=== PATIENT | female | born 1990 | race American Indian/Alaskan Native ===

== ENCOUNTER 2021-12-22 22:23 | Emergency (ER) | payer MEDICAID ==
[2021-12-22] MEDS ORDERED: SODIUM CHLORIDE 0.9% 1000 ML 1,000 ML IV ONE (22:31)
--- NOTE | 2021-12-22 22:35 | Emergency Department Report ---
ED General Adult HPI - General Stated complaint: VAG BLEED Time Seen by Provider: 12/22/21 22:28 - History of Present Illness Initial comments: patient presents with complaints of heavy vaginal bleeding x 30 minutes. Denies CP, SOB, dizziness. Endorses suprapubic abdominal cramping. LMP prior to this was 11/27/2021. Has regular periods. - Related Data Allergies Allergy/AdvReac Type Severity Reaction Status Date / Time No Known Allergies Allergy Unverified 12/22/21 22:33 ED Review of Systems ROS: Stated complaint: VAG BLEED Other details as noted in HPI Comment: All other systems reviewed and negative Constitutional: denies: chills, fever ED Past Medical Hx - Past Medical History Previous Medical History?: No ED Physical Exam - General Limitations: No Limitations General appearance: alert, in no apparent distress - Head Head exam: Present: atraumatic, normocephalic - Eye Eye exam: Present: PERRL, EOMI - ENT ENT exam: Present: mucous membranes moist, other (airway patent) - Neck Neck exam: Present: other (supple; no JVD) - Respiratory Respiratory exam: Present: other (good air entry, nml I:E, CTAB, no use of MELANIA) - Cardiovascular Cardiovascular Exam: Present: regular rate. Absent: rubs, gallop - GI/Abdominal GI/Abdominal exam: Present: soft, other (tender to palpation in suprapubic region; no rebound tenderness or involuntary guarding) - Extremities Exam Extremities exam: Present: full ROM. Absent: tenderness - Back Exam Back exam: Present: full ROM. Absent: tenderness - Neurological Exam Neurological exam: Present: alert, oriented X3, CN II-XII intact. Absent: motor sensory deficit - Skin Skin exam: Present: warm, normal color ED Course Vital Signs 12/22/21 12/22/21 12/22/21 22:33 23:22 23:31 Temperature 97.8 F Pulse Rate 68 Respiratory 24 Rate Blood Pressure 103/63 Blood Pressure 93/63 [Left] O2 Sat by Pulse 96 93 99 Oximetry 12/22/21 12/22/21 12/23/21 23:45 23:49 00:01 Temperature Pulse Rate Respiratory Rate Blood Pressure 103/63 103/63 103/66 Blood Pressure [Left] O2 Sat by Pulse 100 100 100 Oximetry 04/12/23/21 12/23/21 00:07 00:15 00:31 Temperature Pulse Rate Respiratory Rate Blood Pressure 103/66 105/63 Blood Pressure [Left] O2 Sat by Pulse 100 100 100 Oximetry 12/23/21 12/23/21 12/23/21 00:45 01:01 01:15 Temperature Pulse Rate Respiratory Rate Blood Pressure 105/63 114/82 114/82 Blood Pressure [Left] O2 Sat by Pulse 100 98 100 Oximetry 12/23/21 12/23/21 12/23/21 01:31 01:45 02:01 Temperature Pulse Rate Respiratory Rate Blood Pressure 109/71 109/71 109/82 Blood Pressure [Left] O2 Sat by Pulse 98 98 98 Oximetry 12/23/21 12/23/21 12/23/21 02:15 02:31 03:40 Temperature Pulse Rate 88 Respiratory 18 Rate Blood Pressure 109/82 118/54 Blood Pressure 116/77 [Left] O2 Sat by Pulse 98 98 98 Oximetry ED Medical Decision Making - Lab Data Result diagrams: 12/22/21 22:49 12/22/21 22:49 Laboratory Tests 12/22/21 12/22/21 12/22/21 22:49 22:49 22:49 WBC 6.7 RBC 4.38 Hgb 13.1 Hct 39.3 MCV 90 MCH 30 MCHC 33 RDW 12.0 L Plt Count 226 Lymph % (Auto) 53.7 H Mclennan % (Auto) 7.0 Eos % (Auto) 1.7 Baso % (Auto) 0.2 Lymph # (Auto) 3.6 Mclennan # (Auto) 0.5 Eos # (Auto) 0.1 Baso # (Auto) 0.0 Seg Neutrophils % 37.4 L Seg Neutrophils # 2.5 PT 14.0 INR 0.97 APTT 32.6 Sodium 138 Potassium 3.6 Chloride 102.5 Carbon Dioxide 23 Anion Gap 16 BUN 7 Creatinine 0.6 Estimated GFR > 60 BUN/Creatinine Ratio 12 Glucose 116 H Calcium 8.8 Total Bilirubin 0.30 AST 13 ALT 10 Alkaline Phosphatase 77 Total Protein 7.1 Albumin 4.5 Albumin/Globulin Ratio 1.7 HCG, Qual Blood Type Antibody Screen 12/22/21 12/22/21 22:49 22:49 WBC RBC Hgb Hct MCV MCH MCHC RDW Plt Count Lymph % (Auto) Mclennan % (Auto) Eos % (Auto) Baso % (Auto) Lymph # (Auto) Mclennan # (Auto) Eos # (Auto) Baso # (Auto) Seg Neutrophils % Seg Neutrophils # PT INR APTT Sodium Potassium Chloride Carbon Dioxide Anion Gap BUN Creatinine Estimated GFR BUN/Creatinine Ratio Glucose Calcium Total Bilirubin AST ALT Alkaline Phosphatase Total Protein Albumin Albumin/Globulin Ratio HCG, Qual Negative Blood Type O POSITIVE Antibody Screen Negative Pelvic US: wnl - Medical Decision Making likely 2/2 regular menstruation with dysmenorrhea. Ectopic , SAB, fibroids, endometrial hyperplasia, coagulopathy, thrombocytopenia and consequential anemia ruled out. Critical care attestation.: If time is entered above; I have spent that time in minutes in the direct care of this critically ill patient, excluding procedure time. ED Disposition Clinical Impression: Dysmenorrhea Disposition: 01 HOME / SELF CARE / HOMELESS Is pt being admited?: No Does the pt Need Aspirin: No Condition: Stable Instructions: Dysmenorrhea, [id number] Additional Instructions: Follow up with your regular doctor within 2 - 3 days. Return to the ER if your symptoms worsen. Referrals: PRIMARY CARE, [Primary Care Provider] - 3-5 Days
[2021-12-22 23:20] LABS: Basophils % (Auto) 0.2 % (0.0-1.8); Eosinophils # (Auto) 0.1 K/mm3 (0.0-0.4); Eosinophils % (Auto) 1.7 % (0.0-4.3); Hematocrit 39.3 % (30.3-42.9); Hemoglobin 13.1 gm/dl (10.1-14.3); Lymphocytes # (Auto) 3.6 K/mm3 (1.2-5.4); Lymphocytes % (Auto) 53.7 % (13.4-35.0); Mean Corpuscular HGB Conc 33 % (30-34); Mean Corpuscular Volume 90 fl (79-97); Monocytes # (Auto) 0.5 K/mm3 (0.0-0.8); Platelet Count 226 K/mm3 (140-440); Red Blood Count 4.38 M/mm3 (3.65-5.03)
[2021-12-22 23:31] LABS: INR 0.97 (0.87-1.13)
[2021-12-22 23:32] LABS: Partial Thromboplastin Time 32.6 Sec. (24.2-36.6)
[2021-12-22 23:38] LABS: Alanine Aminotransferase 10 units/L (7-56); Albumin 4.5 g/dL (3.9-5); Blood Urea Nitrogen 7 mg/dL (7-17); Calcium 8.8 mg/dL (8.4-10.2); Hemolysis Index 4
[2021-12-22 23:48] LABS: BUN/Creatinine Ratio 12
--- NOTE | 2021-12-23 01:26 | Ultrasound Report ---
US pelvic complete INDICATION / CLINICAL INFORMATION: vaginal bleeding; abdominal pain COMPARISON: None available. TECHNIQUE: Using a transcutaneous probe, multiple grayscale and color Doppler images were captured an d stored of the uterus, ovaries, and urinary bladder. FINDINGS: Uterus measures 10.7 x 4.6 x 5.5 cm and appears minimally anteverted. The endometrial cavity is thick ened measuring 1.4 cm. No intrauterine gestational sac is demonstrated. The right ovary measures 3.5 x 1.8 x 3.1 cm and is otherwise normal. Left ovary measures 3.8 x 2.8 x 2.9 cm and is otherwise normal. No free fluid or adnexal masses are demonstrated. Urinary bladder is unremarkable. IMPRESSION: 1. Nonspecific prominence of the endometrial cavity may simply reflect phase of menstrual cycle. No a cute findings. Signer Name: Wojciech Mercado II, MD Signed: 12/23/2021 1:21 AM Workstation Name: [id number]
[2021-12-23 04:28] VITALS: BP 116/77
== END 2021-12-23 03:45 | disposition home or self-care (01) ==
LOC: ED 22:23
DX: N94.6 Dysmenorrhea, unspecified (principal)
CPT/HCPCS: 36415; 76856; 80053; 84703; 85025; 85610; 85730; 86850; 86900; 86901; 96360; 99284; J7030